=== PATIENT | male | born 1980 | race Caucasian/White ===

== ENCOUNTER 2019-11-01 12:29 | Emergency (ER) | payer OTHER ==
[~2019-11-01] VITALS: Ht 175.3 cm; Wt 93.0 kg
[2019-11-01 12:40] VITALS: Ht 175.3 cm; Wt 93.0 kg
[2019-11-01 13:13] LABS: BASOPHIL % 0.4 % (0-2); PLATELET COUNT 253 x10^3mcL (130-400); RED CELL DISTRIBUTION WIDTH 13.4 % (11.5-14.5)
[2019-11-01 14:03] LABS: CARBON DIOXIDE 30.6 mmol/L (21-32); CHLORIDE SERUM 103 mmol/L (98-107); CREATININE SERUM 1.1 mg/dL (0.7-1.3); GFR1 > 60 mL/min; GLUCOSE SERUM 111 mg/dL (74-106); LIPASE 193 IU/L (73-393); POTASSIUM SERUM 4.2 mmol/L (3.5-5.1); SODIUM SERUM 141 mmol/L (136-145)
[2019-11-01 14:15] LABS: CALCIUM 9.7 mg/dL (8.5-10.1)
[2019-11-01 14:56] LABS: UA SPECIFIC GRAVITY <=1.005 (1.005-1.035); microscopic required? YES; urine erythrocyte 3+ (NEGATIVE)
[2019-11-01 16:04] VITALS: BP 141/73
== END 2019-11-01 16:04 | disposition short-term general hospital (02) ==
LOC: ED 12:29
PROVIDERS: Emergency Medicine
DX: J93.9 Pneumothorax, unspecified (principal)
CPT/HCPCS: J3010; J7030; Q9967